=== PATIENT | female | born 1975 | race Caucasian/White ===

== ENCOUNTER → 2018-09-02 | Outpatient (CLI) | payer BC ==
[~2018-09-02] MED LIST: CALCITRIOL PO; CALCIUM500 MG PO; DOXYCYCLINE 10100 MG PO; LEVOXYL0.1 MG PO; NO HOME MEDICATIONS
== END ==
LOC: MC.RAD 07:07
DX: Z12.31 Encounter for screening mammogram for malignant neoplasm of breast (principal)